=== PATIENT | male | born 1995 | race Hispanic/Latino ===

== ENCOUNTER 2021-06-26 12:05 | Emergency (ER) | payer OTHER ==
[~2021-06-26] VITALS: Ht 190.5 cm; Wt 100.0 kg
[~2021-06-26 12:05] MED LIST: AMOXICILLIN500 MG OR; AMOXICILLIN875 MG PO; LOTRISONE CREAM15 GM EX; MOTRIN800 MG PO; NAPROSYN500 MG PO; NO; PENICILLIN V P500 MG PO; PENICILLN VK500 MG PO; ULTRAM50 M1 PO
[2021-06-26 13:20] VITALS: BP 123/75
== END 2021-06-26 13:20 | disposition home or self-care (01) | DRG 179 ==
LOC: ED 12:05
DX: U07.1 COVID-19 (principal); F17.200 Nicotine dependence, unspecified, uncomplicated

== ENCOUNTER 2021-07-03 20:44 | Emergency (ER) | payer SELFPAY ==
[~2021-07-03] VITALS: Ht 190.5 cm; Wt 84.1 kg
[2021-07-03] MEDS ORDERED: LORTAB 1010 MG PO (22:23)
[2021-07-03] MEDS ORDERED: AMOXICILLIN500 MG PO (22:23)
[2021-07-03 22:39] VITALS: BP 157/91
== END 2021-07-03 22:35 | disposition home or self-care (01) | DRG 158 ==
LOC: ED 20:44
DX: K04.7 Periapical abscess without sinus (principal); M84.68XA Pathological fracture in other disease, other site, initial encounter for fracture; F17.200 Nicotine dependence, unspecified, uncomplicated

== ENCOUNTER 2021-10-27 08:33 | Emergency (ER) | payer SELFPAY ==
[~2021-10-27] VITALS: Ht 190.5 cm; Wt 130.0 kg
[~2021-10-27 08:33] MED LIST changes: +AMOXICILLIN500 MG PO; +LORTAB 1010 MG PO
[2021-10-27 10:45] VITALS: BP 131/67
== END 2021-10-27 10:45 | disposition home or self-care (01) | DRG 179 ==
LOC: ED 08:33
DX: U07.1 COVID-19 (principal)

== ENCOUNTER 2022-01-28 23:22 | Emergency (ER) | payer OTHER ==
[~2022-01-28] VITALS: Ht 193 cm; Wt 125.0 kg
[2022-01-29 00:09] LABS: IMMATURE GRANULOCYTES 0.2 % (0.0-5.0); MEAN CORPUSCULAR HGB 32.1 pG CALC (26.0-32.0); MEAN CORPUSCULAR HGB CONC 34.1 g/dL CAL (32.0-36.0); NEUT# 4.21 thou/uL (1.82-7.42); RED BLOOD COUNT 4.36 mill/uL (4.70-6.10)
[2022-01-29 00:19] LABS: ALBUMIN 4.2 g/dL (3.2-5.0); ALKALINE PHOSPHATASE 50 u/l (38-126); ANION GAP 16 (6-22 (CALC)); BILIRUBIN, TOTAL 0.6 mg/dL (0.0-1.4); BUN 8 mg/dL (9-20); BUN/CREATININE RATIO 9 (12-20 (CALC)); CARBON DIOXIDE 21 mmol/l (22-30); CHLORIDE 105 mmol/l (95-108); CREATININE 0.9 mg/dL (0.7-1.3); ETHYL ALCOHOL 93 mg/dl (0-30); GFR > 60 ML/MIN (>=60 (CALC)); GFR FOR AFR.AMER. > 60 ML/MIN (>=60 (CALC)); POTASSIUM 3.3 mmol/l (3.5-5.1); SGOT/AST 25 u/l (17-59); SODIUM 139 mmol/l (137-146); TOTAL PROTEIN 7.9 g/dL (6.3-8.2); URINE BILIRUBIN - DIPSTICK NEGATIVE (NEGATIVE); URINE BLOOD DIPSTICK NEGATIVE (NEGATIVE); URINE COLOR YELLOW; URINE GLUCOSE - DIPSTICK NEGATIVE (NEGATIVE); URINE KETONE NEGATIVE (NEGATIVE); URINE LEUK ESTERASE NEGATIVE (NEGATIVE); URINE NITRITE - DIPSTICK NEGATIVE (Negative); URINE PROTEIN - DIPSTICK TRACE mg/dL (NEG-TRACE); URINE SPECIFIC GRAVITY <=1.005; URINE UROBILINOGEN - DIPSTICK 0.2 E.U./dL (0.2)
[2022-01-29 00:30] LABS: MYOGLOBIN 149 ng/mL (0 - 121)
[2022-01-29 01:11] VITALS: BP 126/72
== END 2022-01-29 01:11 | DRG 897 ==
LOC: ED 23:22
PROVIDERS: Emergency Medicine
DX: F10.10 Alcohol abuse, uncomplicated (principal); Z20.822 Contact with and (suspected) exposure to COVID-19